=== PATIENT | male | born 1945 | race Hispanic/Latino ===

== ENCOUNTER 2021-10-03 00:09 | Inpatient (IN) | payer MEDICARE ==
[~2021-10-03] VITALS: Ht 170.2 cm; Wt 78.5 kg
[2021-10-03 00:34] LABS: BASOPHILS % (AUTO) 0.5 % (0.0-5.0); EOSINOPHILS % (AUTO) 2.7 % (0.0-8.0); HEMATOCRIT 32.4 % (42-54); LYMPHOCYTES % (AUTO) 26.2 % (21.0-51.0); MEAN CORPUSCULAR HEMOGLOBIN 30.9 pg (27.0-33.0); MEAN CORPUSCULAR HGB CONC 33.6 g/dL (32.0-36.0); MEAN CORPUSCULAR VOLUME 91.8 fL (79-99); MONOCYTES % (AUTO) 13.3 % (3.0-13.0); NEUTROPHILS % (AUTO) 56.3 % (40.0-77.0); PLATELET COUNT (AUTO) 181 K/uL (130-400); RED BLOOD CELL COUNT(AUTO) 3.53 MIL/uL (4.50-6.20); RED CELL DISTRIBUTION WIDTH 14.7 % (11.0-15.5); WHITE BLOOD COUNT (AUTO) 5.9 K/uL (4.8-10.8)
[2021-10-03 00:40] LABS: CREATININE 0.7 mg/dL (0.5-1.5); POTASSIUM 3.3 mmol/L (3.5-5.1)
[2021-10-03 00:45] LABS: ALBUMIN 1.9 g/dL (3.5-5.0); BILIRUBIN,TOTAL 0.7 mg/dL (0.2-1.0); TOTAL PROTEIN, SERUM 6.2 g/dL (6.0-8.3)
[2021-10-03] MEDS ORDERED: PANTOPRAZOLE 40 MG/VIAL ONE (01:04)
[2021-10-03] MEDS ORDERED: 0.9%NACL 1000ML 1,000 ML IV ONE (01:30)
[2021-10-03] MEDS: PANTOPRAZOLE 40MG INJ 80 MG in 0.9%NACL 100ML 100 ML IVP SCH ×3 (01:30→22:45)
[2021-10-03] MEDS ORDERED: ONDANSETRON 4MG INJ IVP ONE (01:30)
[2021-10-03] MEDS ORDERED: PANTOPRAZOLE 40 MG/VIAL IVP ONE (01:30)
[2021-10-03] MEDS ORDERED: 0.9%NACL 1000ML 1,000 ML IV SCH (02:00)
[2021-10-03] MEDS ORDERED: MORPHINE 2 MG SYG IV PRN (02:00)
[2021-10-03] MEDS ORDERED: OCTREOTIDE ACETATE 1,250 MCG in 0.9% NACL 250ML 250 ML IV SCH (02:00)
[2021-10-03] MEDS ORDERED: ONDANSETRON 4MG INJ IV PRN (02:00)
[2021-10-03] MEDS ORDERED: OCTREOTIDE ACETATE 100 MCG/ML AMP IV SCH (02:00)
[2021-10-03] MEDS ORDERED: LIDOCAINE HCL-MPF 1% 2ML VIAL IV PRN (02:00)
[2021-10-03] MEDS ORDERED: MORPHINE 4 MG SYG IV PRN (02:00)
[2021-10-03] MEDS ORDERED: ACETAMINOPHEN 325 MG TAB PO PRN (02:00)
[2021-10-03] MEDS ORDERED: POTASSIUM CHLORIDE 20MEQ/100ML 100 ML IV PRN ×2 (02:00→15:00)
[2021-10-03 02:06] LABS: INR 1.22 (0.85-1.15); PROTHROMBIN TIME 13.1 SEC (9.6-11.6)
[2021-10-03 02:07] LABS: PARTIAL THROMBOPLASTIN TIME 31.8 SEC (26.3-35.5)
[2021-10-03] MEDS ORDERED: OCTREOTIDE ACETATE 200 MCG/ML 5 ML VIAL ONE (02:27)
[2021-10-03 03:01] LABS: MAGNESIUM 1.6 mg/dL (1.80-2.40); PHOSPHORUS 3.2 mg/dL (2.5-4.9)
[2021-10-03 03:42] VITALS: BP 137/71
[2021-10-03 04:03] LABS: % IRON SATURATION 32.2 % (30-44)
[2021-10-03 05:34] LABS: HEMATOCRIT 31.7 % (42-54)
[2021-10-03 08:00] VITALS: BP 122/62
[2021-10-03] MEDS ORDERED: MAGNESIUM 2GM PREMIX 50ML 50 ML IV SCH (08:30)
[2021-10-03] MEDS: PANTOPRAZOLE 40MG INJ 80 MG in 0.9%NACL 100ML 100 ML IV SCH (09:00)
[2021-10-03 09:12] LABS: BASOPHILS % (AUTO) 0.6 % (0.0-5.0); CREATININE 0.8 mg/dL (0.5-1.5); EOSINOPHILS % (AUTO) 1.5 % (0.0-8.0); HEMATOCRIT 32.3 % (42-54); LYMPHOCYTES % (AUTO) 22.5 % (21.0-51.0); MEAN CORPUSCULAR HEMOGLOBIN 30.5 pg (27.0-33.0); MEAN CORPUSCULAR HGB CONC 31.9 g/dL (32.0-36.0); MEAN CORPUSCULAR VOLUME 95.6 fL (79-99); MONOCYTES % (AUTO) 13.4 % (3.0-13.0); NEUTROPHILS % (AUTO) 61.4 % (40.0-77.0); PLATELET COUNT (AUTO) 163 K/uL (130-400); POTASSIUM 3.4 mmol/L (3.5-5.1); RED BLOOD CELL COUNT(AUTO) 3.38 MIL/uL (4.50-6.20); WHITE BLOOD COUNT (AUTO) 6.7 K/uL (4.8-10.8)
[2021-10-03 09:16] LABS: ALBUMIN 1.9 g/dL (3.5-5.0); BILIRUBIN,TOTAL 0.7 mg/dL (0.2-1.0); CRP QUANTITATIVE 25.7 mg/L (0.00-9.0); TOTAL PROTEIN, SERUM 6.3 g/dL (6.0-8.3)
[2021-10-03] MEDS: ZOSYN 3.375GM +NS 50ML IV SCH ×2 (10:16→17:52)
[2021-10-03] MEDS: DOXYCYCLINE 100MG+NS 250ML IV SCH ×2 (10:16→22:45)
[2021-10-03 10:19] LABS: ERYTHROCYTE SEDIMENTATION RATE 28 MM/HR (0-20)
[2021-10-03] MEDS ORDERED: SODIUM CHLORIDE 3% FOR INHALATION 4 ML/AMP VIAL.NEB IH ONE (11:13)
[2021-10-03 12:13] LABS: HEMATOCRIT 30.4 % (42-54)
[2021-10-03] MEDS ORDERED: COMPOUND IV REFRIGERATED 1 EACH IVSOLN MISC PRN (12:30)
[2021-10-03 13:15] VITALS: BP 134/66
[2021-10-03] MEDS ORDERED: KCL 20 MEQ ERTAB PO PRN (13:30)
[2021-10-03] MEDS ORDERED: POTASSIUM CHLORIDE 10% ELIXIR 20 MEQ/15 ML UDCUP PO PRN (13:30)
[2021-10-03] MEDS ORDERED: POTASSIUM CHLORIDE 10MEQ/100ML 100 ML IV PRN (13:30)
[2021-10-03] MEDS ORDERED: LACTATED RINGERS 1000ML 1,000 ML IV SCH (14:00)
[2021-10-03 14:34] LABS: APPEARANCE,URINE Cloudy (CLEAR); BILIRUBIN,URINE Negative (NEGATIVE); COLOR,URINE Dark Yellow (YELLOW); GLUCOSE, URINE (UA) Negative (NEGATIVE); KETONES,URINE Negative (NEGATIVE); LEUKOCYTE ESTERASE ,URINE Negative (NEGATIVE); NITRATE,URINE Negative (NEGATIVE); OCCULT BLOOD,URINE Negative (NEGATIVE); PH,URINE 5.5 (5.0-8.0); PROTEIN,URINE Trace mg/dL (NEGATIVE)
[2021-10-03 14:53] LABS: BACTERIA,URINE Few /HPF (None Seen); MUCUS,URINE Many LPF (None Seen); SQUAMOUS EPITHELIAL CELL,UR Few /HPF (0-2); WBC,URINE 0-1 /HPF (0-1)
[2021-10-03 16:00] VITALS: BP 120/66
[2021-10-03 18:06] LABS: HEMATOCRIT 30.3 % (42-54)
[2021-10-03 19:52] VITALS: BP 104/58
[2021-10-03 23:30] VITALS: BP 110/69
[2021-10-04] MEDS ORDERED: 0.9%NACL 50ML 50 ML IV ONE ×2 (00:51→09:33)
[2021-10-04] MEDS: ZOSYN 3.375GM +NS 50ML IV SCH ×3 (02:43→17:40)
[2021-10-04 03:32] LABS: EOSINOPHILS % (AUTO) 3.4 % (0.0-8.0); LYMPHOCYTES % (AUTO) 26.1 % (21.0-51.0); MEAN CORPUSCULAR HEMOGLOBIN 31.2 pg (27.0-33.0); MEAN CORPUSCULAR HGB CONC 32.9 g/dL (32.0-36.0); MEAN CORPUSCULAR VOLUME 94.9 fL (79-99); MONOCYTES % (AUTO) 12.7 % (3.0-13.0); NEUTROPHILS % (AUTO) 56.6 % (40.0-77.0); PLATELET COUNT (AUTO) 133 K/uL (130-400); RED BLOOD CELL COUNT(AUTO) 2.95 MIL/uL (4.50-6.20); WHITE BLOOD COUNT (AUTO) 4.2 K/uL (4.8-10.8)
[2021-10-04 03:35] VITALS: BP 105/51
[2021-10-04 03:40] LABS: CREATININE 0.6 mg/dL (0.5-1.5); POTASSIUM 4.1 mmol/L (3.5-5.1)
[2021-10-04 07:43] VITALS: BP 117/66
[2021-10-04] MEDS: PANTOPRAZOLE 40MG INJ 80 MG in 0.9%NACL 100ML 100 ML IV SCH (09:00)
[2021-10-04] MEDS: PANTOPRAZOLE 40MG INJ 80 MG in 0.9%NACL 100ML 100 ML IVP SCH (09:17)
[2021-10-04] MEDS: DOXYCYCLINE 100MG+NS 250ML IV SCH ×2 (09:18→22:10)
[2021-10-04 12:00] VITALS: BP 110/58
[2021-10-04 16:00] VITALS: BP 137/65
[2021-10-04 19:02] VITALS: BP 120/65
[2021-10-04 23:03] VITALS: BP 120/71
[2021-10-05] MEDS: ZOSYN 3.375GM +NS 50ML IV SCH ×3 (02:26→18:38)
[2021-10-05 03:13] VITALS: BP 122/66
[2021-10-05 07:20] LABS: HEMATOCRIT 29.6 % (42-54); MEAN CORPUSCULAR HEMOGLOBIN 30.7 pg (27.0-33.0); MEAN CORPUSCULAR HGB CONC 31.8 g/dL (32.0-36.0); MEAN CORPUSCULAR VOLUME 96.7 fL (79-99); RED BLOOD CELL COUNT(AUTO) 3.06 MIL/uL (4.50-6.20); RED CELL DISTRIBUTION WIDTH 14.9 % (11.0-15.5); WHITE BLOOD COUNT (AUTO) 4.6 K/uL (4.8-10.8)
[2021-10-05 07:48] LABS: CREATININE 0.8 mg/dL (0.5-1.5); POTASSIUM 3.6 mmol/L (3.5-5.1)
[2021-10-05 08:00] VITALS: BP 118/64
[2021-10-05] MEDS ORDERED: ACETAMINOPHEN 500 MG TABLET PO PRN (08:30)
[2021-10-05] MEDS ORDERED: IRON SUCROSE COMPLEX 500 MG in 0.9%NACL 50ML 50 ML IV SCH (08:30)
[2021-10-05] MEDS ORDERED: ACETAMINOPHEN WITH CODEINE 1 TAB TAB PO PRN (08:30)
[2021-10-05] MEDS: PANTOPRAZOLE 40 MG TAB DR PO SCH ×2 (08:57→21:00)
[2021-10-05] MEDS ORDERED: COMPOUND IV MISC 1 EACH IVSOLN MISC PRN (09:00)
[2021-10-05] MEDS ORDERED: 0.9%NACL 50ML 50 ML IV ONE (10:10)
[2021-10-05] MEDS: DOXYCYCLINE 100MG+NS 250ML IV SCH ×2 (10:11→22:54)
[2021-10-05 12:00] VITALS: BP 110/68
[2021-10-05] MEDS ORDERED: BISACODYL 5 MG TABLET.DR PO PRN (13:00)
[2021-10-05] MEDS: BISACODYL 5 MG TABLET.DR PO SCH ×2 (14:59→21:00)
[2021-10-05 15:55] VITALS: BP 131/73
[2021-10-05 19:02] VITALS: BP 129/70
[2021-10-05 23:05] VITALS: BP 115/59
[2021-10-06] MEDS: ZOSYN 3.375GM +NS 50ML IV SCH ×2 (01:37→10:27)
[2021-10-06 03:10] VITALS: BP 116/69
[2021-10-06 04:14] LABS: HEMATOCRIT 29.5 % (42-54); MEAN CORPUSCULAR HEMOGLOBIN 31.5 pg (27.0-33.0); MEAN CORPUSCULAR HGB CONC 33.9 g/dL (32.0-36.0); MEAN CORPUSCULAR VOLUME 93.1 fL (79-99); RED BLOOD CELL COUNT(AUTO) 3.17 MIL/uL (4.50-6.20); RED CELL DISTRIBUTION WIDTH 14.8 % (11.0-15.5); WHITE BLOOD COUNT (AUTO) 6.2 K/uL (4.8-10.8)
[2021-10-06 04:39] LABS: CREATININE 0.7 mg/dL (0.5-1.5); POTASSIUM 3.3 mmol/L (3.5-5.1)
[2021-10-06] MEDS ORDERED: KCL 20 MEQ ERTAB PO PRN (06:00)
[2021-10-06] MEDS: POTASSIUM CHLORIDE 10% ELIXIR 20 MEQ/15 ML UDCUP PO PRN ×2 (06:11→08:29)
[2021-10-06 07:07] VITALS: BP 117/65
[2021-10-06] MEDS: PANTOPRAZOLE 40 MG TAB DR PO SCH (08:28)
[2021-10-06] MEDS: BISACODYL 5 MG TABLET.DR PO SCH (08:28)
[2021-10-06] MEDS: DOXYCYCLINE 100MG+NS 250ML IV SCH (10:27)
[2021-10-06 11:42] VITALS: BP 120/80
== END 2021-10-06 17:00 | DRG 377 ==
LOC: EDH 00:09 → EDHIP 01:49 → 2AH 03:25
PROVIDERS: ADMIT Internal Medicine; ATTEND Internal Medicine
DX: K29.71 Gastritis, unspecified, with bleeding (principal); J69.0 Pneumonitis due to inhalation of food and vomit; J96.01 Acute respiratory failure with hypoxia; E43 Unspecified severe protein-calorie malnutrition; D62 Acute posthemorrhagic anemia; E87.6 Hypokalemia; R74.01 Elevation of levels of liver transaminase levels; Z87.11 Personal history of peptic ulcer disease; K21.9 Gastro-esophageal reflux disease without esophagitis; D69.6 Thrombocytopenia, unspecified; K80.20 Calculus of gallbladder without cholecystitis without obstruction; Z20.822 Contact with and (suspected) exposure to COVID-19; Z68.27 Body mass index [BMI] 27.0-27.9, adult; I10 Essential (primary) hypertension
CPT/HCPCS: 36415; 71045; 76705; 80048; 80053; 81001; 82728; 82948; 83540; 83550; 83615; 83735; 83880; 84100; 84145; 84484; 85014; 85018; 85025; 85027; 85610; 85651; 85730; 86140; 86738; 86850; 86900; 86901; 87071; 87205; 87449; 87635; 87804; 92610; 93005; 94640; 97039; C9113; G0378; J1756; J2354; J2405; J2543; J3475; J3480; J3490; J7030; J7050; J7120

== ENCOUNTER 2022-08-19 15:45 | Inpatient (IN) | payer MEDICARE ==
[~2022-08-19] VITALS: Ht 165.1 cm; Wt 62.6 kg
[2022-08-19 16:53] LABS: INR 1.16 (0.85-1.15); PROTHROMBIN TIME 12.5 SEC (9.6-11.6)
[2022-08-19 16:54] LABS: BASOPHILS % (AUTO) 0.7 % (0.0-5.0); HEMATOCRIT 34.3 % (42-54); LYMPHOCYTES % (AUTO) 7.5 % (21.0-51.0); MEAN CORPUSCULAR HEMOGLOBIN 30.8 pg (27.0-33.0); MEAN CORPUSCULAR HGB CONC 33.2 g/dL (32.0-36.0); MEAN CORPUSCULAR VOLUME 92.7 fL (79-99); NEUTROPHILS % (AUTO) 80.3 % (40.0-77.0); PLATELET COUNT (AUTO) 211 K/uL (130-400); RED CELL DISTRIBUTION WIDTH 15.1 % (11.0-15.5); WHITE BLOOD COUNT (AUTO) 11.5 K/uL (4.8-10.8)
[2022-08-19 17:00] LABS: CREATININE 1.3 mg/dL (0.5-1.5); POTASSIUM 4.8 mmol/L (3.5-5.1)
[2022-08-19 17:06] LABS: MAGNESIUM 1.8 mg/dL (1.80-2.40); TOTAL PROTEIN, SERUM 7.4 g/dL (6.0-8.3)
[2022-08-19 17:11] LABS: B-TYPE NATRIURETIC PEPTIDE 1360 pg/mL (0-100)
[2022-08-19 17:27] LABS: APPEARANCE,URINE CLOUDY (CLEAR); BILIRUBIN,URINE NEGATIVE (NEGATIVE); COLOR,URINE LIGHT-ORANGE (YELLOW); GLUCOSE, URINE (UA) NEGATIVE (NEGATIVE); KETONES,URINE NEGATIVE (NEGATIVE); LEUKOCYTE ESTERASE ,URINE NEGATIVE Leu/uL (NEGATIVE); NITRATE,URINE NEGATIVE (NEGATIVE); OCCULT BLOOD,URINE LARGE (NEGATIVE); PROTEIN,URINE 300 mg/dL (NEGATIVE); UROBILINOGEN,URINE 3 mg/dL (0.2-1.0)
[2022-08-19] MEDS ORDERED: FUROSEMIDE 40MG VIAL IV ONE (17:30)
[2022-08-19] MEDS ORDERED: CEFTRIAXONE 1G VIAL IVP ONE (17:30)
[2022-08-19 17:40] LABS: BACTERIA,URINE RARE /HPF (None Seen); OTHER CASTS, URINE 4 /LPF (None Seen); RBC,URINE >100 /HPF (0-1); SQUAMOUS EPITHELIAL CELL,UR RARE /HPF (0-2); YEAST,URINE BUDDING MOD /HPF (None Seen)
[2022-08-19] MEDS: AZITHROMYCIN 500MG+NS 250ML IVPB SCH (17:58)
[2022-08-19] MEDS ORDERED: IPRATROPIUM/ALBUTEROL SULFATE 3 ML SOLUTION IH PRN (20:00)
[2022-08-19] MEDS ORDERED: ONDANSETRON 4MG INJ IVP PRN (20:00)
[2022-08-19] MEDS: ACETAMINOPHEN 325 MG TAB PO PRN (20:36)
[2022-08-19] MEDS ORDERED: IPRATROPIUM 0.5 MG/2.5 ML INH IH ONE (21:07)
[2022-08-19] MEDS ORDERED: ALBUTEROL 0.083% 2.5 MG/3 ML INH IH ONE (21:07)
[2022-08-19] MEDS ORDERED: FUROSEMIDE 20MG VIAL IV ONE (21:30)
[2022-08-19 22:25] VITALS: BP 154/87
[2022-08-19] MEDS ORDERED: PANT40TA54 PO (23:08)
[2022-08-19] MEDS ORDERED: MIRT7.5T11 PO (23:08)
[2022-08-19] MEDS ORDERED: DICL100G31 TP (23:08)
[2022-08-19] MEDS ORDERED: METO25 PO (23:08)
[2022-08-19] MEDS ORDERED: DULO30CA52 PO (23:08)
[2022-08-19] MEDS ORDERED: MELA3TAB41 PO (23:08)
[2022-08-20 02:42] LABS: CREATINE KINASE, TOTAL 93 U/L (21-232); MYOGLOBIN 150 ng/mL (10-92)
[2022-08-20 04:41] VITALS: BP 109/62
[2022-08-20 05:39] LABS: HEMATOCRIT 30.2 % (42-54); MEAN CORPUSCULAR HEMOGLOBIN 31.7 pg (27.0-33.0); MEAN CORPUSCULAR HGB CONC 35.4 g/dL (32.0-36.0); MEAN CORPUSCULAR VOLUME 89.3 fL (79-99); RED BLOOD CELL COUNT(AUTO) 3.38 MIL/uL (4.50-6.20); RED CELL DISTRIBUTION WIDTH 15.2 % (11.0-15.5); WHITE BLOOD COUNT (AUTO) 6.1 K/uL (4.8-10.8)
[2022-08-20 05:55] LABS: ALBUMIN 1.7 g/dL (3.5-5.0); CREATININE 1.4 mg/dL (0.5-1.5); POTASSIUM 4.3 mmol/L (3.5-5.1); TOTAL PROTEIN, SERUM 6.5 g/dL (6.0-8.3)
[2022-08-20] MEDS ORDERED: FUROSEMIDE 40MG VIAL IVP SCH ×2 (07:30→09:00)
[2022-08-20 08:00] VITALS: BP 97/58
[2022-08-20 08:13] LABS: ABG BASE EXCESS -2.4 mmol/L (-2.0-3.0); ABG HCO3 23.5 mmol/L (21.0-28.0); ABG PCO2 44 mmHg (35-48)
[2022-08-20] MEDS: FAMOTIDINE 20MG VIAL IV SCH (10:00)
[2022-08-20] MEDS: ENOXAPARIN SODIUM 40 MG/0.4 ML SYRINGE SQ SCH (10:07)
[2022-08-20] MEDS: ALBUTEROL 0.083% 2.5 MG/3 ML INH IH SCH ×3 (11:48→23:11)
[2022-08-20] MEDS: IPRATROPIUM 0.5 MG/2.5 ML INH IH SCH ×3 (11:48→23:11)
[2022-08-20 12:00] VITALS: BP 132/61
[2022-08-20 16:00] VITALS: BP 165/99
[2022-08-20] MEDS: CEFTRIAXONE 2GM VIAL IVPB SCH (16:02)
[2022-08-20] MEDS: AZITHROMYCIN 500MG+NS 250ML IVPB SCH (16:02)
[2022-08-20] MEDS: FUROSEMIDE 40MG VIAL IVP SCH ×2 (16:02→22:53)
[2022-08-20] MEDS ORDERED: SODIUM CHLORIDE 3% FOR INHALATION 4 ML/AMP VIAL.NEB IH ONE (16:44)
[2022-08-20] MEDS ORDERED: CEFTRIAXONE 1G VIAL IVPB SCH (17:00)
[2022-08-20 20:00] VITALS: BP 107/64
[2022-08-20 22:53] VITALS: BP 121/63
[2022-08-21 04:00] VITALS: BP 131/76
[2022-08-21 05:41] LABS: BASOPHILS % (AUTO) 1.1 % (0.0-5.0); LYMPHOCYTES % (AUTO) 9.8 % (21.0-51.0); MEAN CORPUSCULAR HEMOGLOBIN 31.1 pg (27.0-33.0); MEAN CORPUSCULAR HGB CONC 33.7 g/dL (32.0-36.0); MEAN CORPUSCULAR VOLUME 92.3 fL (79-99); MONOCYTES % (AUTO) 19.8 % (3.0-13.0); NEUTROPHILS % (AUTO) 68.7 % (40.0-77.0); PLATELET COUNT (AUTO) 122 K/uL (130-400); RED BLOOD CELL COUNT(AUTO) 3.25 MIL/uL (4.50-6.20); RED CELL DISTRIBUTION WIDTH 14.9 % (11.0-15.5); WHITE BLOOD COUNT (AUTO) 4.7 K/uL (4.8-10.8)
[2022-08-21 05:58] LABS: ALBUMIN 1.6 g/dL (3.5-5.0); BILIRUBIN,DIRECT 0.2 mg/dL (0.0-0.3); CREATININE 1.3 mg/dL (0.5-1.5); CRP QUANTITATIVE 168.5 mg/L (0.00-9.0); MAGNESIUM 1.8 mg/dL (1.80-2.40); POTASSIUM 3.7 mmol/L (3.5-5.1); TOTAL PROTEIN, SERUM 6.2 g/dL (6.0-8.3)
[2022-08-21] MEDS: FUROSEMIDE 40MG VIAL IVP SCH ×3 (06:44→21:49)
[2022-08-21] MEDS: IPRATROPIUM 0.5 MG/2.5 ML INH IH SCH ×4 (07:00→23:00)
[2022-08-21] MEDS: ALBUTEROL 0.083% 2.5 MG/3 ML INH IH SCH ×4 (07:00→23:00)
[2022-08-21 10:44] LABS: ABG BASE EXCESS -3.1 mmol/L (-2.0-3.0); ABG HCO3 23.2 mmol/L (21.0-28.0); ABG OXYGEN SATURATION 96.6 % (95.0-99.0); ABG PCO2 46 mmHg (35-48)
[2022-08-21] MEDS: FAMOTIDINE 20MG VIAL IV SCH (11:22)
[2022-08-21 12:00] VITALS: BP 111/68
[2022-08-21] MEDS: ENOXAPARIN SODIUM 40 MG/0.4 ML SYRINGE SQ SCH (14:29)
[2022-08-21] MEDS ORDERED: VANCOMYCIN 750MG VIAL IVPB ONE (14:30)
[2022-08-21] MEDS ORDERED: 0.9% NACL 250ML IVPB ONE (14:30)
[2022-08-21] MEDS ORDERED: VANCOMYCIN PROTOCOL PER PHARMACY IV SCH (14:30)
[2022-08-21] MEDS ORDERED: VANCOMYCIN 1G/250ML KIT 250 ML IV SCH (15:00)
[2022-08-21 16:00] VITALS: BP 108/52
[2022-08-21] MEDS: CEFTRIAXONE 2GM VIAL IVPB SCH (18:40)
[2022-08-21] MEDS: AZITHROMYCIN 500MG+NS 250ML IVPB SCH (19:45)
[2022-08-21 20:00] VITALS: BP 132/75
[2022-08-22] VITALS (7 sets, daily range): BP systolic 88–126; BP diastolic 64–85
[2022-08-22] MEDS: FUROSEMIDE 40MG VIAL IVP SCH ×3 (04:57→21:43)
[2022-08-22] MEDS: ACETAMINOPHEN 325 MG TAB PO PRN (05:33)
[2022-08-22 06:18] LABS: HEMATOCRIT 30.5 % (42-54); MEAN CORPUSCULAR HEMOGLOBIN 30.9 pg (27.0-33.0); MEAN CORPUSCULAR HGB CONC 33.4 g/dL (32.0-36.0); MEAN CORPUSCULAR VOLUME 92.4 fL (79-99); RED BLOOD CELL COUNT(AUTO) 3.3 MIL/uL (4.50-6.20); WHITE BLOOD COUNT (AUTO) 3.9 K/uL (4.8-10.8)
[2022-08-22 06:45] LABS: ALBUMIN 1.5 g/dL (3.5-5.0); CREATININE 1.2 mg/dL (0.5-1.5); MAGNESIUM 1.8 mg/dL (1.80-2.40); POTASSIUM 3.2 mmol/L (3.5-5.1); TOTAL PROTEIN, SERUM 6.1 g/dL (6.0-8.3)
[2022-08-22] MEDS ORDERED: ACETAMINOPHEN 325 MG SUPPOSITORY RC PRN (08:00)
[2022-08-22] MEDS ORDERED: METOPROLOL TARTRATE 1 MG/ML 5ML VIAL IV PRN (08:00)
[2022-08-22] MEDS ORDERED: PHARMACY COMMUNICATION MISC SCH (09:00)
[2022-08-22] MEDS: ENOXAPARIN SODIUM 40 MG/0.4 ML SYRINGE SQ SCH (09:23)
[2022-08-22] MEDS ORDERED: KCL 20 MEQ ERTAB PO PRN (10:00)
[2022-08-22] MEDS ORDERED: POTASSIUM CHLORIDE 20MEQ/100ML 100 ML IV PRN (10:00)
[2022-08-22] MEDS ORDERED: LIDOCAINE HCL-MPF 1% 2ML VIAL IV PRN (10:00)
[2022-08-22] MEDS ORDERED: MAGNESIUM 2GM PREMIX 50ML 50 ML IV PRN (10:00)
[2022-08-22] MEDS: FAMOTIDINE 20MG VIAL IV SCH (11:44)
[2022-08-22] MEDS ORDERED: PYRAZINAMIDE 500 MG TABLET PO SCH (13:30)
[2022-08-22] MEDS ORDERED: ETHAMBUTOL HCL 400 MG TABLET PO SCH (13:30)
[2022-08-22] MEDS: METOPROLOL TARTRATE 25 MG TAB PO SCH ×2 (15:31→21:42)
[2022-08-22] MEDS: POTASSIUM CHLORIDE 10% ELIXIR 20 MEQ/15 ML UDCUP PO PRN ×2 (17:35→21:43)
[2022-08-22] MEDS: CEFTRIAXONE 2GM VIAL IVPB SCH (17:35)
[2022-08-22] MEDS: IPRATROPIUM 0.5 MG/2.5 ML INH IH SCH (20:04)
[2022-08-22] MEDS: ALBUTEROL 0.042% 1.25MG/3ML IH ONE ×4 (20:04→20:17)
[2022-08-22] MEDS ORDERED: SODIUM CHLORIDE 3% FOR INHALATION 4 ML/AMP VIAL.NEB IH ONE (23:53)
[2022-08-23] VITALS: BP 106/72
[2022-08-23] MEDS: IPRATROPIUM 0.5 MG/2.5 ML INH IH SCH ×3 (00:01→11:36)
[2022-08-23 04:00] VITALS: BP 106/67
[2022-08-23] MEDS: FUROSEMIDE 40MG VIAL IVP SCH (05:58)
[2022-08-23 06:11] LABS: BASOPHILS % (AUTO) 0.6 % (0.0-5.0); HEMATOCRIT 31.5 % (42-54); LYMPHOCYTES % (AUTO) 12.3 % (21.0-51.0); MEAN CORPUSCULAR HEMOGLOBIN 30.7 pg (27.0-33.0); MEAN CORPUSCULAR HGB CONC 33.3 g/dL (32.0-36.0); MEAN CORPUSCULAR VOLUME 92.1 fL (79-99); MONOCYTES % (AUTO) 15.9 % (3.0-13.0); NEUTROPHILS % (AUTO) 70.4 % (40.0-77.0); PLATELET COUNT (AUTO) 173 K/uL (130-400); RED BLOOD CELL COUNT(AUTO) 3.42 MIL/uL (4.50-6.20); WHITE BLOOD COUNT (AUTO) 5.3 K/uL (4.8-10.8)
[2022-08-23] MEDS ORDERED: IPRATROPIUM/ALBUTEROL SULFATE 3 ML SOLUTION IH ONE (06:24)
[2022-08-23 06:26] LABS: ALBUMIN 1.5 g/dL (3.5-5.0); CREATININE 1.2 mg/dL (0.5-1.5); POTASSIUM 4.2 mmol/L (3.5-5.1); TOTAL PROTEIN, SERUM 5.8 g/dL (6.0-8.3)
[2022-08-23] MEDS: ENOXAPARIN SODIUM 40 MG/0.4 ML SYRINGE SQ SCH (08:56)
[2022-08-23 08:58] VITALS: BP 94/41
[2022-08-23] MEDS ORDERED: RIFAMPIN 300 MG CAPSULE PO SCH (09:00)
[2022-08-23] MEDS: FAMOTIDINE 20MG VIAL IV SCH (09:00)
[2022-08-23] MEDS: METOPROLOL TARTRATE 25 MG TAB PO SCH (09:00)
[2022-08-23] MEDS ORDERED: ISONIAZID 300 MG TAB PO SCH (09:00)
[2022-08-23] MEDS ORDERED: PYRIDOXINE HCL 50 MG TABLET PO SCH (09:00)
[2022-08-23 11:46] VITALS: BP 127/68
[2022-08-23] MEDS ORDERED: LORAZEPAM 2 MG/ML 1 ML VIAL IVP PRN (12:00)
[2022-08-23] MEDS ORDERED: SCOPOLAMINE HYDROBROMIDE 1 EACH ADH..PATCH TD SCH (12:00)
[2022-08-23] MEDS ORDERED: ACETAMINOPHEN 650 MG SUPPOSITORY RC PRN (12:00)
[2022-08-23] MEDS ORDERED: HALOPERIDOL INJ 5 MG/ML VIAL IV PRN (12:00)
[2022-08-23] MEDS ORDERED: ARTIFICAL TEARS SOL 15 ML OU PRN (12:00)
[2022-08-23] MEDS ORDERED: ONDANSETRON 4MG TABLET PO PRN (12:00)
[2022-08-23 16:25] VITALS: BP 119/60
[2022-08-23 20:00] VITALS: BP 167/90
[2022-08-24] MEDS: MORPHINE 2 MG SYG IVP PRN ×3 (02:18→13:45)
[2022-08-24] MEDS ORDERED: TAMSULOSIN HCL 0.4 MG CAP.ER.24H ONE (03:32)
[2022-08-24] MEDS: TAMSULOSIN HCL 0.4 MG CAP.ER.24H PO SCH ×2 (03:48→04:10)
[2022-08-24 07:20] VITALS: BP 109/64
[2022-08-24] MEDS ORDERED: ISONIAZID 300 MG TAB PO SCH (09:00)
[2022-08-24] MEDS ORDERED: PYRIDOXINE HCL 50 MG TABLET PO SCH (09:00)
[2022-08-24] MEDS ORDERED: ETHAMBUTOL HCL 400 MG TABLET PO SCH (09:00)
[2022-08-24] MEDS ORDERED: RIFAMPIN 300 MG CAPSULE PO SCH (09:00)
[2022-08-24 19:00] VITALS: BP 105/57
== END 2022-08-24 20:46 | disposition hospice, inpatient (51) | DRG 871 ==
LOC: EDH 15:45 → EDHIP 15:46 → UNDOADMIN 15:46 → EDHIP 18:37 → 3BH 21:56 → 3CH 08-20 15:57
PROVIDERS: ADMIT Hospitalist; ATTEND Hospitalist
PROC: 5A09357 Assistance with Respiratory Ventilation, Less than 24 Consecutive Hours, Continuous Positive Airway Pressure (ICD-10-PCS; principal; 2022-08-19)
PROC: 5A09357 Assistance with Respiratory Ventilation, Less than 24 Consecutive Hours, Continuous Positive Airway Pressure (ICD-10-PCS; 2022-08-20)
PROC: 5A09357 Assistance with Respiratory Ventilation, Less than 24 Consecutive Hours, Continuous Positive Airway Pressure (ICD-10-PCS; 2022-08-22)
PROC: 5A09357 Assistance with Respiratory Ventilation, Less than 24 Consecutive Hours, Continuous Positive Airway Pressure (ICD-10-PCS; 2022-08-23)
DX: A41.9 Sepsis, unspecified organism (principal); I21.4 Non-ST elevation (NSTEMI) myocardial infarction; J96.01 Acute respiratory failure with hypoxia; I50.31 Acute diastolic (congestive) heart failure; J15.9 Unspecified bacterial pneumonia; E46 Unspecified protein-calorie malnutrition; A15.9 Respiratory tuberculosis unspecified; Z20.822 Contact with and (suspected) exposure to COVID-19; Z51.5 Encounter for palliative care; I11.0 Hypertensive heart disease with heart failure; E78.5 Hyperlipidemia, unspecified; Z66 Do not resuscitate; K21.9 Gastro-esophageal reflux disease without esophagitis; K70.30 Alcoholic cirrhosis of liver without ascites; B95.61 Methicillin susceptible Staphylococcus aureus infection as the cause of diseases classified elsewhere; I48.91 Unspecified atrial fibrillation; R33.8 Other retention of urine; Z78.9 Other specified health status; Z68.23 Body mass index [BMI] 23.0-23.9, adult
CPT/HCPCS: 31720; 36415; 36600; 71045; 71250; 74018; 80048; 80053; 80076; 80202; 81001; 82140; 82550; 82803; 82948; 83605; 83735; 83874; 83880; 84145; 84484; 85025; 85027; 85610; 86140; 86480; 87040; 87071; 87077; 87088; 87116; 87186; 87205; 87206; 87635; 87804; 93005; 93306; 93356; 93970; 94640; 94660; 94664; 94667; 94668; C9803; G0378; J0456; J0696; J1650; J1940; J2060; J3370; J3475; J3490

== ENCOUNTER 2022-08-24 20:39 | Inpatient (IN) | payer MEDICARE, OTHER ==
[~2022-08-24 20:39] MED LIST: DICL100G31 TP; DULO30CA52 PO; MELA3TAB41 PO; METO25 PO; MIRT7.5T11 PO; PANT40TA54 PO
[2022-08-24 21:00] VITALS: BP 105/57
[2022-08-24] MEDS ORDERED: ACETAMINOPHEN 325 MG TAB PO PRN (21:00)
[2022-08-24] MEDS ORDERED: GLYCOPYRROLATE 1 MG/5 ML SYRINGE IV PRN (21:00)
[2022-08-24] MEDS ORDERED: MORPHINE 2 MG SYG IVP PRN (21:00)
[2022-08-24] MEDS ORDERED: BISACODYL 10 MG SUPP.RECT RC PRN (21:00)
[2022-08-24] MEDS ORDERED: ONDANSETRON 4MG INJ IV PRN (21:00)
[2022-08-24] MEDS ORDERED: LORAZEPAM 2 MG/ML 1 ML VIAL IVP PRN (21:30)
[2022-08-25] MEDS: MORPHINE 2 MG SYG IVP PRN ×3 (00:01→15:34)
[2022-08-25] MEDS: MORPHINE 2 MG SYG IVP SCH (20:00)
[2022-08-25] MEDS: MORPHINE 4 MG SYG IVP PRN (21:58)
[2022-08-26 04:07] VITALS: BP 129/57
[2022-08-26 09:00] VITALS: BP 126/39
[2022-08-26] MEDS: MORPHINE 4 MG SYG IVP PRN (09:30)
[2022-08-26] MEDS: MORPHINE 2 MG SYG IVP SCH ×3 (12:10→21:14)
[2022-08-26] MEDS: LORAZEPAM 2 MG/ML 1 ML VIAL IVP SCH ×2 (14:08→22:57)
[2022-08-26 20:00] VITALS: BP 110/59
[2022-08-27] MEDS: MORPHINE 2 MG SYG IVP SCH ×4 (04:01→20:12)
[2022-08-27] MEDS: LORAZEPAM 2 MG/ML 1 ML VIAL IVP SCH ×2 (06:11→14:44)
[2022-08-27 08:00] VITALS: BP 109/58
[2022-08-27 21:00] VITALS: BP 112/56
[2022-08-28] MEDS: MORPHINE 2 MG SYG IVP SCH ×5 (03:54→20:09)
[2022-08-28] MEDS: LORAZEPAM 2 MG/ML 1 ML VIAL IVP SCH ×3 (05:05→22:41)
[2022-08-28 08:00] VITALS: BP 127/62
[2022-08-28] MEDS: MORPHINE 2 MG SYG IVP PRN (10:15)
[2022-08-29] MEDS: MORPHINE 2 MG SYG IVP SCH ×7 (00:13→23:31)
[2022-08-29] MEDS: LORAZEPAM 2 MG/ML 1 ML VIAL IVP SCH ×3 (06:02→22:33)
[2022-08-29] MEDS: MORPHINE 4 MG SYG IVP PRN ×2 (08:40→12:38)
[2022-08-29 23:50] VITALS: BP 89/35
== END 2022-08-30 01:02 | DRG 871 ==
LOC: 3CH 20:39
PROVIDERS: ADMIT Internal Medicine; ATTEND Internal Medicine
DX: A41.9 Sepsis, unspecified organism (principal); I21.4 Non-ST elevation (NSTEMI) myocardial infarction; J96.01 Acute respiratory failure with hypoxia; I50.31 Acute diastolic (congestive) heart failure; J15.211 Pneumonia due to Methicillin susceptible Staphylococcus aureus; E46 Unspecified protein-calorie malnutrition; I11.0 Hypertensive heart disease with heart failure; R33.9 Retention of urine, unspecified; I48.91 Unspecified atrial fibrillation; K70.30 Alcoholic cirrhosis of liver without ascites; R62.7 Adult failure to thrive; Z66 Do not resuscitate; Z51.5 Encounter for palliative care
CPT/HCPCS: G0378; J2060; J2270